=== PATIENT | male | born 1985 | race Caucasian/White ===

== ENCOUNTER 2020-05-16 11:54 | Inpatient (IN) | payer OTHER ==
[~2020-05-16] VITALS: Ht 170.2 cm; Wt 108.9 kg
[2020-05-16 12:44] LABS: CREATININE 0.8 mg/dL (0.6-1.3); POTASSIUM 3.4 mmol/L (3.5-5.1)
[2020-05-16] MEDS ORDERED: AZITHROMYCIN IV 500 MG in IV DEXTROSE 5% 250 ML IV ONE (12:45)
[2020-05-16] MEDS ORDERED: DEXAMETHASONE SOD PHOSPHATE 4 MG INJ IV ONE (12:45)
[2020-05-16] MEDS ORDERED: CEFTRIAXONE 1 G in IV DEXTROSE 5% 50 ML IV ONE (12:45)
[2020-05-16] MEDS ORDERED: ACET-2154 PO (12:52)
[2020-05-16 12:53] LABS: BASOPHILS % (AUTO) 0.3 % (0.0-2.0); EOSINOPHILS % (AUTO) 0.5 % (0.0-7.0); HEMATOCRIT 29.8 % (36.7-47.1); HEMOGLOBIN 9.7 g/dL (12.5-16.3); LYMPHOCYTES # (AUTO) 0.9 K/uL (20.0-40.0); LYMPHOCYTES % (AUTO) 18.4 % (20.5-51.5); MEAN CORPUSCULAR HEMOGLOBIN 22.5 uug (23.8-33.4); MEAN CORPUSCULAR HGB CONC 33 g/dL (32.5-36.3); MEAN CORPUSCULAR VOLUME 69.2 fL (73.0-96.2); MONOCYTES # (AUTO) 0.2 K/uL (2.0-10.0); MONOCYTES % (AUTO) 5.2 % (0.0-11.0); NEUTROPHILS # (AUTO) 3.6 K/uL (1.8-8.9); NEUTROPHILS % (AUTO) 75.6 % (38.5-71.5); PLATELET COUNT (AUTO) 211 K/uL (152-348); WHITE BLOOD COUNT (AUTO) 4.8 K/uL (3.6-10.2)
[2020-05-16] MEDS ORDERED: POTASSIUM CHLORIDE 20 MEQ TAB.PRT.SR PO ONE (13:00)
[2020-05-16] MEDS ORDERED: CEFTRIAXONE /D5W 50ML IVPB **ER PYXIS IV ONE (13:19)
[2020-05-16] MEDS ORDERED: DEXAMETHASONE SOD PHOSPHATE 10 MG INJ ONE (13:19)
[2020-05-16] MEDS ORDERED: POTASSIUM CHLORIDE 20 MEQ TAB.PRT.SR ONE (13:19)
[2020-05-16 13:25] LABS: BILIRUBIN,TOTAL 0.5 mg/dL (0.2-1.0); TOTAL PROTEIN, SERUM 8.1 g/dL (6.4-8.2)
[2020-05-16] MEDS ORDERED: AZITHROMYCIN 500MG/ D5W 250ML IVPB **ER PYXIS ONLY IV ONE (13:33)
[2020-05-16 13:44] LABS: *OCCULT BLOOD STOOL NEGATIVE (NEGATIVE)
[2020-05-16] MEDS ORDERED: ENOXAPARIN SODIUM 100 MG/ML DISP.SYRIN SQ ONE ×2 (14:00→14:06)
--- NOTE | 2020-05-16 15:12 | NUR ---
Patient is resting comfortably on gurney with high-salgado's position, calm, COVID isolation observed.
--- NOTE | 2020-05-16 18:22 | NUR ---
Intermittent spastic coughing heard,+chest discomfort post-tussive. Patient moved to hospital bed from [facility] for comfort. Patient is waiting for inpatient telemetry [facility] bed & available inpatient nurse.
--- NOTE | 2020-05-16 19:00 | NUR ---
Received patient from AM nurse. Safety measures in place. Continue plan of care.
--- NOTE | 2020-05-16 19:24 | NUR ---
Hands off report given to MILAGROS Banda. Patient is still for inpatient transfer to telemetry [facility] floor, pending available nurse & space@this time. Patient is eating dinner with good appetite.
[2020-05-16] MEDS ORDERED: ZOLPIDEM 5 MG TABLET PO PRN (20:15)
[2020-05-16] MEDS ORDERED: HYDROCODONE/APAP 5-325MG TABLET PO PRN (20:15)
[2020-05-16] MEDS ORDERED: ACETAMINOPHEN 325 MG TABLET PO PRN (20:15)
[2020-05-16] MEDS ORDERED: ONDANSETRON 4 MG/2 ML VIAL IV PRN (20:15)
[2020-05-16 23:04] LABS: LYMPHOCYTES % (MANUAL) 20 % (20-40); MONOCYTES % (MANUAL) 6 % (2-10); NEUTROPHILS % (MANUAL) 74 % (42-75)
[2020-05-16] MEDS: DOCUSATE SODIUM 100 MG CAPSULE PO SCH (23:50)
[2020-05-17 00:30] VITALS: BP 122/57
--- NOTE | 2020-05-17 00:50 | NUR ---
Patient taken up to #[address] [place] under the care of MILAGROS Strickland. Stable condition. Take via wheelchair.
[2020-05-17] MEDS ORDERED: DIPHENOXYLATE HCL/ATROP SULF TABLET PO PRN (01:00)
--- NOTE | 2020-05-17 01:31 | NUR ---
Pt arrived in the unit at 0030. AAO x4. On 4L O2 via NC, no acute distress noted. SOB on exertion. Denies pain/ discomfort. Pt requesting for antidiarrheal medication. Pt stated that he had 2x loose BM in ER. Notified Jennifer with new order. Pertinent assessment done. VS stable. Oriented pt to room and equipment. Safety measures maintained. Call light and personal items within reach. Will continue to monitor.
[2020-05-17 04:00] VITALS: BP 107/60
[2020-05-17] MEDS: PANTOPRAZOLE SODIUM 40 MG TABLET.DR PO SCH (06:33)
[2020-05-17 08:29] LABS: BILIRUBIN,TOTAL 0.4 mg/dL (0.2-1.0); CREATININE 0.8 mg/dL (0.6-1.3); MAGNESIUM 2.2 mg/dL (1.8-2.4); POTASSIUM 3.9 mmol/L (3.5-5.1); TOTAL PROTEIN, SERUM 8.4 g/dL (6.4-8.2)
[2020-05-17 09:09] LABS: BASOPHILS % (AUTO) 0.2 % (0.0-2.0); HEMATOCRIT 32.4 % (36.7-47.1); HEMOGLOBIN 10.6 g/dL (12.5-16.3); LYMPHOCYTES # (AUTO) 0.4 K/uL (20.0-40.0); LYMPHOCYTES % (AUTO) 15.1 % (20.5-51.5); MEAN CORPUSCULAR HEMOGLOBIN 23.3 uug (23.8-33.4); MEAN CORPUSCULAR HGB CONC 33 g/dL (32.5-36.3); MEAN CORPUSCULAR VOLUME 71.2 fL (73.0-96.2); MONOCYTES # (AUTO) 0.2 K/uL (2.0-10.0); NEUTROPHILS # (AUTO) 2.2 K/uL (1.8-8.9); NEUTROPHILS % (AUTO) 78.7 % (38.5-71.5); PLATELET COUNT (AUTO) 241 K/uL (152-348); RED BLOOD CELL COUNT(AUTO) 4.55 MIL/uL (4.06-5.63); WHITE BLOOD COUNT (AUTO) 2.8 K/uL (3.6-10.2)
[2020-05-17] MEDS: DEXAMETHASONE SOD PHOSPHATE 4 MG INJ IV SCH (09:49)
[2020-05-17 10:31] LABS: THYROID STIMULATING HORMONE 0.554 mIU/mL (0.358-3.740)
[2020-05-17 11:15] VITALS: BP 114/61
[2020-05-17 11:59] LABS: IRON, SERUM 35 ug/dL (50-175)
[2020-05-17 15:24] VITALS: BP 101/58
[2020-05-17 20:00] VITALS: BP 114/52
[2020-05-17] MEDS: DOCUSATE SODIUM 100 MG CAPSULE PO SCH ×2 (21:00→21:06)
--- NOTE | 2020-05-17 22:43 | NUR ---
Received pt resting in bed and talking on the phone. AAO x4. On 5L O2 via NC, no acute distress noted. SOB on exertion. Pt stated that he is feeling better now compared to yesterday. Denies pain/ discomfort. Due med given as ordered. Safety measures maintained. Call light and personal items within reach. Will continue to monitor.
[2020-05-18] VITALS: BP 110/59
[2020-05-18 00:16] LABS: LYMPHOCYTES % (MANUAL) 15 % (20-40); MONOCYTES % (MANUAL) 6 % (2-10); NEUTROPHILS % (MANUAL) 79 % (42-75)
[2020-05-18 04:00] VITALS: BP 112/54
[2020-05-18] MEDS: PANTOPRAZOLE SODIUM 40 MG TABLET.DR PO SCH (06:11)
[2020-05-18 07:25] LABS: CREATININE 0.8 mg/dL (0.6-1.3); MAGNESIUM 2.2 mg/dL (1.8-2.4); PHOSPHOROUS 3.5 mg/dL (2.5-4.9); POTASSIUM 4.4 mmol/L (3.5-5.1)
[2020-05-18] MEDS: DEXAMETHASONE SOD PHOSPHATE 4 MG INJ IV SCH (08:25)
[2020-05-18 11:59] VITALS: BP 126/64
[2020-05-18 17:27] VITALS: BP 120/65
[2020-05-18 20:10] VITALS: BP 110/56
[2020-05-18] MEDS: DOCUSATE SODIUM 100 MG CAPSULE PO SCH (21:50)
[2020-05-19 00:33] VITALS: BP 111/54
[2020-05-19 04:38] VITALS: BP 110/64
[2020-05-19] MEDS: PANTOPRAZOLE SODIUM 40 MG TABLET.DR PO SCH (06:42)
[2020-05-19] MEDS: DEXAMETHASONE SOD PHOSPHATE 4 MG INJ IV SCH (09:07)
[2020-05-19 11:09] LABS: BASOPHILS % (AUTO) 0.1 % (0.0-2.0); HEMATOCRIT 33.5 % (36.7-47.1); HEMOGLOBIN 10.8 g/dL (12.5-16.3); LYMPHOCYTES # (AUTO) 1.5 K/uL (20.0-40.0); LYMPHOCYTES % (AUTO) 21.6 % (20.5-51.5); MEAN CORPUSCULAR HEMOGLOBIN 22.5 uug (23.8-33.4); MEAN CORPUSCULAR HGB CONC 32 g/dL (32.5-36.3); MEAN CORPUSCULAR VOLUME 70.1 fL (73.0-96.2); MONOCYTES # (AUTO) 0.3 K/uL (2.0-10.0); MONOCYTES % (AUTO) 4.5 % (0.0-11.0); NEUTROPHILS # (AUTO) 5.1 K/uL (1.8-8.9); NEUTROPHILS % (AUTO) 73.8 % (38.5-71.5); PLATELET COUNT (AUTO) 291 K/uL (152-348); RED BLOOD CELL COUNT(AUTO) 4.78 MIL/uL (4.06-5.63); WHITE BLOOD COUNT (AUTO) 6.9 K/uL (3.6-10.2)
[2020-05-19 11:39] LABS: BILIRUBIN,TOTAL 0.3 mg/dL (0.2-1.0); CREATININE 1.1 mg/dL (0.6-1.3); MAGNESIUM 2.1 mg/dL (1.8-2.4); POTASSIUM 3.3 mmol/L (3.5-5.1); TOTAL PROTEIN, SERUM 7.9 g/dL (6.4-8.2)
[2020-05-19 11:53] VITALS: BP 106/48
[2020-05-19] MEDS ORDERED: POTASSIUM CHLORIDE 20 MEQ TAB.PRT.SR PO ONE (14:30)
[2020-05-19 16:17] VITALS: BP 127/71
--- NOTE | 2020-05-19 16:36 | NUR ---
Received patient on 3L with saturation of 96%. Per patient, he sneezed really hard and stated that he is feeling out of breath and wanted O2 to be increased. Increased to 4L with relief. Currently placed on O2 @ 2L saturating 96%, denied SOB or distress. Standing and walking around the room with no distress.
[2020-05-19 18:07] LABS: LYMPHOCYTES % (MANUAL) 20 % (20-40); MONOCYTES % (MANUAL) 6 % (2-10); NEUTROPHILS % (MANUAL) 74 % (42-75)
[2020-05-19 20:00] VITALS: BP 118/67
[2020-05-19] MEDS: DOCUSATE SODIUM 100 MG CAPSULE PO SCH (21:05)
--- NOTE | 2020-05-20 00:03 | NUR ---
AAOX4 Ambulatory ad viky. Patient independent.On continous O2 @ 2L pulse ox 97%. Compliant with meds. Denies any pain nor any discomfort. VSS. Voiding freely. Repeat Covid test done. Previous test undetermine. Possible d/c in am. Will monitor patient. Kept comfortable.
[2020-05-20 00:37] VITALS: BP 114/42
[2020-05-20 04:00] VITALS: BP 115/63
[2020-05-20] MEDS: PANTOPRAZOLE SODIUM 40 MG TABLET.DR PO SCH (06:07)
--- NOTE | 2020-05-20 06:46 | NUR ---
End of shift notes: Slept well most of the shift. No complaints presented during the shift. Will monitor patient. VSS.Kept comfortable.
[2020-05-20] MEDS: DEXAMETHASONE SOD PHOSPHATE 4 MG INJ IV SCH (08:53)
[2020-05-20 12:00] VITALS: BP 124/68
[2020-05-20 16:00] VITALS: BP 131/73
--- NOTE | 2020-05-20 17:00 | NUR ---
PATIENT IS ON ROOM AIR AT THIS TIME SATS AT 93-94 PERCENT WITH NO SOB AT THIS TIME ALERT AND ORIENTED CALL LIGHTS AND PERSONAL BELONGINGS ARE WITHIN EASY REACH MADE COMFORTABLE WILL CONTINUE TO OBSERVE
[2020-05-20] MEDS: DOCUSATE SODIUM 100 MG CAPSULE PO SCH (20:09)
[2020-05-20 20:54] VITALS: BP 120/69
--- NOTE | 2020-05-21 00:17 | NUR ---
AAOx4 Ambulates to the BR without difficulty. Voiding well. VSS. Patient off oxygen. pulse ox 94% RA. Denies any chest pain nor any respiratory distress noted. Incentive spirometry @ bedside. Encouraged patient to use IS, able to follow instructions easily. Returned demonstration noted. Possible d/c in am.
[2020-05-21 00:35] VITALS: BP 119/65
--- NOTE | 2020-05-21 02:05 | NUR ---
Lab called patient COVID(+).
[2020-05-21 04:00] VITALS: BP 121/55
[2020-05-21] MEDS: PANTOPRAZOLE SODIUM 40 MG TABLET.DR PO SCH (06:12)
--- NOTE | 2020-05-21 07:43 | NUR ---
RECEIVED PATIENT IN BED AWAKE ALERT AND ORIENTED DENIES PAIN OR DISCOMFORTS AT THIS TIME SHE IS ON ROOM AIR WITH NO SOB AT THIS TIME REEDUCATED ON INCENTIVE SPIROMETER ORDERED AFEBRILE PATIENT IS COVID POSITIVE RESP ISOLATION AND PRECAUTION REMAINS IN PROGRESS WILL CONTINUE TO OBSERVE.
[2020-05-21] MEDS: DEXAMETHASONE SOD PHOSPHATE 4 MG INJ IV SCH (08:24)
--- NOTE | 2020-05-21 11:28 | NUR ---
DISCHARGE ORDER TO HOME NOTED BUT PATIENT STATED TO FIRST DO A C REACTIVE PROTEIN TEST AND IF RESULT IS LESS THAT THE PREVIOUS THEN IT WILL BE OKAY FOR PATIENT TO BE DISCHARGED.PATIENT AWARE WAITING FOR THE LAB TO DO THE TEST.
[2020-05-21 12:39] VITALS: BP 133/73
--- NOTE | 2020-05-21 13:31 | NUR ---
THE RESULT OF THE C REACTIVE PROTEIN IS 1.3 AND THE PREVIOUS ONE IS 25.8 DR KELLY STATED PATIENT CAN BE DISCHARGED PREPPING PATIENT FOR DISCHARGE.
--- NOTE | 2020-05-21 14:00 | NUR ---
DISCHARGE INSTRUCTIONS AND PRESCRIPTIONS GIVEN TO PATIENT AND PATIENT INSTRUCTED TO CALL FOR A FOLLOW UP APPOINTMENT WITH HIS PRIMARY DOCTOR TO RECHECK THE COVID TEST DIABETES HIS AIC IS 6.4 AND CRP IS 1.3 AND HE EXPRESSED UNDERSTANDING.
--- NOTE | 2020-05-21 14:15 | NUR ---
PATIENT PATRICIA HERE AND PATIENT DISCHARGED WITH ALL HIS PERSONAL BELONGINGS AND HIS PRESCRIPTIONS ASSISTED DOWN TO HER CAR IN SATISFACTORY CONDITION WITH NO SOB AT THIS TIME.
== END 2020-05-21 14:15 | disposition home or self-care (01) | DRG 177 ==
LOC: ER 11:54 → TRANSITION 15:53 → TELE3 23:57
PROVIDERS: ADMIT Internal Medicine; ATTEND Internal Medicine
DX: U07.1 COVID-19 (principal); J96.01 Acute respiratory failure with hypoxia; J12.82 Pneumonia due to coronavirus disease 2019; E87.6 Hypokalemia; R73.03 Prediabetes; E66.9 Obesity, unspecified; D64.9 Anemia, unspecified; Z68.37 Body mass index [BMI] 37.0-37.9, adult
CPT/HCPCS: 36415; 70030-TC; 71045; 83550; 83605; 83615; 83735; 84100; 84443; 85025; 86140; 87040; 93005; A4663; G0378; J0456; J0696; J1100; J1650; U0003